=== PATIENT | female | born 1985 | race Asian ===

== ENCOUNTER 2018-07-21 14:50 | Inpatient (IN) | payer OTHER ==
[~2018-07-21] VITALS: Ht 152.4 cm; Wt 40.8 kg
[2018-07-21] MEDS ORDERED: METHYLERGONOVINE MALEATE 0.2 MG/ML VIAL IM PRN (18:30)
[2018-07-21] MEDS ORDERED: RINGERS SOLUTION,LACTATED 1,000 ML IV PRN (18:30)
[2018-07-21] MEDS ORDERED: METOCLOPRAMIDE HCL 5 MG/ML 2 ML VIAL IVP PRN (18:30)
[2018-07-21] MEDS ORDERED: CITRIC ACID/SODIUM CITRATE 30 ML SOLUTION UDCUP PO PRN (18:30)
[2018-07-21] MEDS ORDERED: OXYTOCIN 30 UNITS/LACT RINGERS 500 ML IV ONE (18:33)
[2018-07-21] MEDS ORDERED: ROPIVACAINE HCL/PF 0.2% 100 ML ED ONE (18:41)
[2018-07-21] MEDS ORDERED: LIDOCAINE/PF 2% 5 ML VIAL ONE (18:41)
[2018-07-21] MEDS ORDERED: DiphenhydrAMINE HCL 50 MG/ML VIAL IVP PRN (19:00)
[2018-07-21] MEDS ORDERED: ROPIVACAINE HCL/PF 0.2% 100 ML ED PRN (19:00)
[2018-07-21] MEDS ORDERED: NALBUPHINE HCL 10 MG/ML VIAL IVP PRN (19:00)
[2018-07-21] MEDS ORDERED: ONDANSETRON HCL 4 MG/2 ML VIAL IVP PRN (19:00)
[2018-07-21 19:23] LABS: HEMATOCRIT 36.5 % (36-46); HEMOGLOBIN 12.3 g/dL (12.0-16.0); MEAN CORPUSCULAR HEMOGLOBIN 33.3 pg (26.0-34.0); MEAN CORPUSCULAR HGB CONC 33.8 G/dL (31.0-37.0); MEAN CORPUSCULAR VOLUME 99 fL (80-100); PLATELET COUNT (AUTO)-OB 268 K/uL (150-450); RED CELL DISTRIBUTION WIDTH 12.9 % (11.5-14.5)
[2018-07-21] MEDS ORDERED: OXYGEN THERAPY IH SCH (20:00)
[2018-07-21 20:10] LABS: BAND NEUTROPHILS % (MANUAL) 16 % (0-5); LYMPHOCYTES % (MANUAL) 5 % (22-44); MONOCYTES % (MANUAL) 2 % (2-9); SEGMENTED NEUTROPHILS % 77 % (40-70)
[2018-07-21 22:17] LABS: RUBELLA SCREEN (IGG) IMMUNE (IMMUNE)
[2018-07-21] MEDS: RINGERS SOLUTION,LACTATED 1,000 ML IV SCH (23:57)
[2018-07-22] MEDS: RINGERS SOLUTION,LACTATED 1,000 ML IV SCH ×2 (01:24→06:15)
[2018-07-22 02:37] VITALS: BP 118/73
[2018-07-22] MEDS ORDERED: OXYTOCIN 30 UNITS/LACT RINGERS 500 ML IV PRN (06:02)
[2018-07-22] MEDS ORDERED: LIDOCAINE/PF 1% 30 ML VIAL ONE (07:28)
[2018-07-22] MEDS ORDERED: MINERAL OIL 30 ML UDCUP PO SCH ×2 (07:30)
[2018-07-22] MEDS ORDERED: LIDOCAINE/PF 1% 30 ML VIAL INJ PRN (07:30)
[2018-07-22] MEDS ORDERED: MISOPROSTOL 100 MCG TABLET ONE (07:37)
[2018-07-22] MEDS ORDERED: LANOLIN 7 GM OINTMENT TP PRN ×2 (08:15→08:45)
[2018-07-22] MEDS ORDERED: BENZOCAINE 20%/MENTHOL 56 GM SPRAY CANISTER TP PRN ×2 (08:15→08:45)
[2018-07-22] MEDS ORDERED: GLYCERIN/WITCH HAZEL LEAF 40 PADS JAR TP PRN ×2 (08:15→08:45)
[2018-07-22] MEDS ORDERED: OxyCODONE HCL/ACETAMINOPHEN 5-325 MG TABLET PO PRN ×2 (08:45)
[2018-07-22] MEDS ORDERED: MAGNESIUM HYDROXIDE SUSPENSION 30 ML UDCUP PO PRN (08:45)
[2018-07-22] MEDS ORDERED: IBUPROFEN 600 MG TABLET PO PRN (08:45)
[2018-07-22] MEDS: IBUPROFEN 600 MG TABLET PO PRN ×2 (09:25→20:59)
[2018-07-22] MEDS: OxyCODONE HCL/ACETAMINOPHEN 5-325 MG TABLET PO PRN ×3 (09:26→23:02)
[2018-07-22] MEDS: MetroNIDAZOLE 500 MG TABLET PO SCH ×2 (10:42→23:02)
[2018-07-22] MEDS: SENNA/DOCUSATE SODIUM 8.6-50 MG TABLET PO SCH (13:46)
[2018-07-22] MEDS: MAGNESIUM HYDROXIDE SUSPENSION 30 ML UDCUP PO PRN (23:08)
[2018-07-23] MEDS: SENNA/DOCUSATE SODIUM 8.6-50 MG TABLET PO SCH ×2 (01:59→09:33)
[2018-07-23 06:35] LABS: BASOPHILS % (AUTO) 0.4 % (0.0-2.0); EOSINOPHILS % (AUTO) 0.2 % (1.0-6.0); HEMOGLOBIN 10.6 g/dL (12.0-16.0); LYMPHOCYTES % (AUTO) 13.6 % (22.0-44.0); MEAN CORPUSCULAR HGB CONC 34.1 G/dL (31.0-37.0); MEAN CORPUSCULAR VOLUME 100 fL (80-100); MONOCYTES # (AUTO) 1.5 K/uL (0.1-1.0); NEUTROPHILS # (AUTO) 17.2 K/uL (1.8-7.7); NEUTROPHILS % (AUTO) 78.8 % (40.0-70.0); PLATELET COUNT (AUTO)-OB 245 K/uL (150-450); RED BLOOD CELL COUNT(AUTO) 3.12 MIL/uL (4.00-5.20); RED CELL DISTRIBUTION WIDTH 12.9 % (11.5-14.5)
[2018-07-23] MEDS: IBUPROFEN 600 MG TABLET PO PRN ×2 (07:21→14:40)
[2018-07-23] MEDS: OxyCODONE HCL/ACETAMINOPHEN 5-325 MG TABLET PO PRN ×2 (07:23→14:40)
[2018-07-23] MEDS: MAGNESIUM HYDROXIDE SUSPENSION 30 ML UDCUP PO PRN (08:25)
[2018-07-23] MEDS: MetroNIDAZOLE 500 MG TABLET PO SCH (09:33)
[2018-07-23] MEDS ORDERED: IBUP-2070 PO (14:37)
[2018-07-23] MEDS ORDERED: FERR-89 PO (14:38)
[2018-07-23] MEDS ORDERED: DSS100 PO (14:38)
== END 2018-07-23 15:15 | disposition home or self-care (01) | DRG 768 ==
LOC: OBSVTOIN 14:50 → 4S 14:50
PROVIDERS: ADMIT Obstetrics & Gynecology; ATTEND Obstetrics & Gynecology
PROC: 10E0XZZ Delivery of Products of Conception, External Approach (ICD-10-PCS; principal; 2018-07-22)
PROC: 0DQR0ZZ Repair Anal Sphincter, Open Approach (ICD-10-PCS; 2018-07-22)
PROC: 3E0R3BZ Introduction of Anesthetic Agent into Spinal Canal, Percutaneous Approach (ICD-10-PCS; 2018-07-22)
PROC: 00HU33Z Insertion of Infusion Device into Spinal Canal, Percutaneous Approach (ICD-10-PCS; 2018-07-22)
DX: O77.0 Labor and delivery complicated by meconium in amniotic fluid (principal); Z37.0 Single live birth; O70.20 Third degree perineal laceration during delivery, unspecified; Z3A.38 38 weeks gestation of pregnancy
CPT/HCPCS: 76811; 86592; 86762; 86850; 86900; 86901; 90686; J2590; J2795; J3490; J7120